=== PATIENT | female | born 1980 | race Caucasian/White ===

== ENCOUNTER 2022-01-10 13:55 | Emergency (ER) | payer MEDICAID, OTHER ==
[~2022-01-10] VITALS: Ht 165.1 cm; Wt 62.1 kg
--- NOTE | 2022-01-10 14:15 | NUR ---
PT IS IN ROOM #2B. DR GARY EVALUATED THE PT.
[2022-01-10 14:37] LABS: HEMATOCRIT 28.7 % (31.2-41.9); MEAN CORPUSCULAR HEMOGLOBIN 19.6 uug (24.7-32.8); MEAN CORPUSCULAR VOLUME 61.8 fL (75.5-95.3); PLATELET COUNT (AUTO) 380 K/uL (179-408)
[2022-01-10 14:38] LABS: *URINE HCG, QUAL NEG (NEGATIVE)
[2022-01-10 14:42] LABS: CREATININE 0.9 mg/dL (0.6-1.3); POTASSIUM 3.6 mmol/L (3.5-5.1)
[2022-01-10] MEDS ORDERED: PROCHLORPERAZINE EDISYLATE 10 MG/2 ML VIAL ONE (14:42)
[2022-01-10] MEDS ORDERED: KETOROLAC TROMETHAMINE 15 MG INJ ONE (14:43)
[2022-01-10] MEDS ORDERED: PROCHLORPERAZINE EDISYLATE 10 MG/2 ML VIAL IV ONE (14:45)
[2022-01-10] MEDS ORDERED: IV NORMAL SALINE 1000 ML BAG IV ONE (14:45)
[2022-01-10] MEDS ORDERED: KETOROLAC TROMETHAMINE 15 MG INJ IVP ONE (14:45)
[2022-01-10] MEDS ORDERED: IBUP-1955 PO (15:59)
[2022-01-10 17:52] VITALS: BP 134/70
== END 2022-01-10 17:53 | disposition home or self-care (01) ==
LOC: ER 14:02
DX: R51.9 Headache, unspecified (principal); Z86.69 Personal history of other diseases of the nervous system and sense organs
CPT/HCPCS: 36415; 70450; 80048; 84703; 85025; 96361; 96374; 96375; 99284; J0780; J1885; J7040; A4663

== ENCOUNTER 2022-08-04 23:43 | Emergency (ER) | payer OTHER ==
[~2022-08-04] VITALS: Ht 165.1 cm; Wt 63.5 kg
[~2022-08-04 23:43] MED LIST: IBUP-1955 PO
--- NOTE | 2022-08-05 00:47 | NUR ---
AFTER BEING TRIAGED, PATIENT WAS PLACED IN THE WAITING TO WAIT FOR BED OPENING IN THE ER.
[2022-08-05 01:28] LABS: *BILIRUBIN,URIN NEGATIVE (NEGATIVE); *BLOOD, URINE 3+ (NEGATIVE); *COLOR,URINE YELLOW (YELLOW); *KETONES,URINE 1+ (NEGATIVE); *UROBILINOGEN,URINE 0.2 E.U./dl (NORMAL); LEUKOCYTE ESTERASE ,URINE 1+ (NEGATIVE); NITRITE, URINE NEGATIVE (NEGATIVE); PH,URINE 6.5 (5.0-8.0); UGLUCOSE NEGATIVE (NEGATIVE)
[2022-08-05 01:30] LABS: *CLARITY,URINE SLIGHTLY CLOUDY (CLEAR)
[2022-08-05 01:31] LABS: *URINE HCG, QUAL NEGATIVE (NEGATIVE)
[2022-08-05 02:50] LABS: RBC,URINE TNTC /HPF (0-3); WBC,URINE 20-50 /HPF (0-3)
[2022-08-05 02:51] LABS: BACTERIA,URINE MANY /HPF (NONE SEEN); SQUAMOUS EPITHELIAL CELL,UR FEW /HPF (NONE SEEN)
--- NOTE | 2022-08-05 05:20 | NUR ---
PATIENT WAS JUST PLACED IN ROOM 5B AT THIS TIME.
[2022-08-05] MEDS ORDERED: SULFAMETH/TRIMETH 800/160 MG TABLET PO ONE (06:00)
[2022-08-05] MEDS ORDERED: PHENAZOPYRIDINE HCL 100 MG TABLET PO ONE (06:00)
[2022-08-05] MEDS ORDERED: SULFAMETH/TRIMETH 800/160 MG TABLET ONE (06:01)
[2022-08-05] MEDS ORDERED: PHENAZOPYRIDINE HCL 100 MG TABLET ONE (06:01)
[2022-08-05] MEDS ORDERED: PROC-11 PO (06:08)
[2022-08-05] MEDS ORDERED: SUMA100T16 PO (06:08)
[2022-08-05] MEDS ORDERED: NAPR-1164 PO (06:08)
[2022-08-05] MEDS ORDERED: PHEN-705 PO (06:08)
[2022-08-05] MEDS ORDERED: SULF1TAB48 PO (06:08)
[2022-08-05 06:14] VITALS: BP 117/74
--- NOTE | 2022-08-05 06:15 | NUR ---
Patient discharged to home in stable condition. Written and verbal after care instructions given. Patient verbalizes understanding of instructions. Stressed follow up or return to ER for worsening s/s.
== END 2022-08-05 06:41 | disposition home or self-care (01) ==
LOC: ER 23:43
DX: N30.90 Cystitis, unspecified without hematuria (principal); G43.909 Migraine, unspecified, not intractable, without status migrainosus; Z87.440 Personal history of urinary (tract) infections
CPT/HCPCS: 84703; A4663